=== PATIENT | female | born 1975 | race Two or more races ===

== ENCOUNTER 2024-03-08 15:53 | Emergency (ER) | payer MEDICAID, SELFPAY ==
[2024-03-08 16:03] VITALS: BP 157/91; PULSE 87; RESP 18; TEMP 36.9; O2SAT 99; BMI 37.2
--- NOTE | 2024-03-08 16:07 | XR_ITS ---
Examination: Foot, right, 3 views Technique: AP, oblique, lateral views foot, 3 views Date and time of exam: March 08, 2024 1622 hours INDICATIONS: Foot today, foot pain. FINDINGS: No acute fracture No dislocation No foreign body IMPRESSION: No acute fracture
--- NOTE | 2024-03-08 16:08 | PD.EDFALL ---
ED Fall Injury RME/HPI General Chief Complaint: Fall Stated Complaint: right foot pain/ right elbow injury, s/p fall 10 m Time Seen by Provider: 03/08/24 16:04 Arrival date/time: 03/08/24 15:53 RME / HPI RME / HPI Narrative: 48-year-old female patient with no significant medical history, came in for evaluation regarding ground-level fall. 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 Patient also complained of pain to the right foot described as dull ache stable to mild patient is ambulatory denies vaccination is unknown denies any LOC denies any other injury. Incident happened few minutes prior to ER visit. Related Data Allergies Allergy/AdvReac Type Severity Reaction Status Date / Time No Known Allergies Allergy Verified 03/08/24 15:55 Review of Systems Review of Systems Narrative Review of Systems: Review of system reviewed and within normal limits except mentioned in HPI ED Exam Narrative Physical exam: VITAL SIGNS: Reviewed. GENERAL APPEARANCE: Alert and interactive, follows commands, no acute distress, HEAD AND FACE: Non-traumatic. ENT: PERRL, pink conjunctivitis, eyelid no trauma, Mucous membrane moist. NECK: Supple, nontender, no nuchal rigidity. CHEST: No tenderness, no crepitus, no paradoxical movement, no retractions. LUNGS: Clear, well ventilated, symmetric, no rales, no wheezing, no ronchi, no stridor, good breath sounds bilaterally. HEART: Regular rate, regular rhythm, no murmur, no gallops. ABDOMEN: Soft, positive bowel sounds, nondistended, no guarding, nontender, no rebound, no masses, RECTAL: Deferred. GENITAL: Deferred. NEUROLOGICAL: Gross motor function intact sensory function intact, Appropriate for age. MUSCULOSKELETAL: low back nontender, full range of motion. EXTREMITIES: Abrasion noted to the right posterior forearm no gaping wound noted, full range of motion. Nontender SKIN: Color pink, dry, no rash, no lacerations, no abrasions, no contusions. LYMPHATICS: Deferred. Course Quality Measures none Orders Category Date Time Status XR foot comp RT min 3V Stat Exams 03/08/24 16:07 Completed Acetaminophen Tab [Tylenol ES Tab] Med 03/08/24 16:07 Discontinued 1,000 mg PO X1 ONE Bacitracin Oint Tube Med 03/08/24 16:07 Discontinued See Dose Instructions TOP X1 ONE Tet,Diphth,Pertuss(Acell)-Tdap [Boostrix Vacc] Med 03/08/24 16:07 Discontinued 0.5 ml IMI .ONCE ONE Vital Signs Vital signs: Vital Signs Temperature 98.5 F 03/08/24 16:03 Pulse Rate 87 03/08/24 16:03 Respiratory Rate 18 03/08/24 16:03 Blood Pressure 157/91 H 03/08/24 16:03 Pulse Oximetry (%) 99 03/08/24 16:03 Oxygen Delivery Method Room Air 03/08/24 16:03 Fall MDM Narrative MDM Narrative:: 48-year-old female patient with no significant medical history, came in for evaluation regarding ground-level fall. 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 Patient also complained of pain to the right foot described as dull ache stable to mild patient is ambulatory denies vaccination is unknown denies any LOC denies any other injury. Incident happened few minutes prior to ER visit. Dressing with Neosporin done. X-ray of the foot came back unremarkable results discussed with the patient and family. Patient was also given Boostrix. Patient stable for discharge Patient data External records reviewed:: None Clinical information provided by:: patient Social determinants that could affect healthcare access:: none Patient has the following chronic illnesses:: None How is presenting disease/condition affected by chronic disease/condition?: no chronic disease Evaluation data The following diagnostics were reviewed and interpreted by me:: radiology exam(s) Lab and/or radiology exams considered but not ordered:: None Interpretation Summary: X-ray of the foot came back unremarkable, no fracture no dislocation noted Medications / Prescriptions Medications or Prescriptions considered but not ordered:: None Boostrix, Medication administrations:: Medication Administration History Discontinued Medications Acetaminophen (Acetaminophen 500 Mg Tablet) 1,000 mg PO X1 ONE Stop: 03/08/24 16:08 Last Admin: 03/08/24 16:14 Dose: 1,000 mg Documented By: TONY Bacitracin (Bacitracin Oint 15 Gm Tube) 0 gm TOP X1 ONE Stop: 03/08/24 16:08 Last Admin: 03/08/24 16:15 Dose: 1 applicatio Documented By: TONY Diphtheria/Tetanus/Acell Pertussis (Diphth,Pertuss(Acell),Tet Vac 0.5 Ml Vial) 0.5 ml IMi .ONCE ONE Stop: 03/08/24 16:08 Last Admin: 03/08/24 16:15 Dose: 0.5 ml Documented By: TONY Boostrix, bacitracin dressing, and Tylenol Consultations Consultation(s) initiated? (list below): No Diagnosis Fall Differential Diagnosis: other (Foot fracture, foot pain, forearm abrasions, status fall) Most likely diagnosis given after review of the tests above:: Foot pain, forearm abrasion status post fall Admission Indicated Admission indicated?: not indicated Explain why admission is indicated or not indicated:: Stable Admission Request Was there a request for admission?: No Disposition Plan Disposition Plan: Discharge Discharge Attestation Discharge Attestation: The patient and all family members were given an opportunity to ask questions and understood the discharge instructions. Discharge instructions specifically effects, indications for sooner follow up or return to the emergency department, and the expected course of current diagnosis. Patient condition: Stable Discharge Plan Plan Patient Disposition: HOME (Self Care) Disposition Comment: stable Prescriptions/Referrals Referrals: Dionna Pierce FNP-C [Primary Care Provider] - In 1 week Problem List Clinical Impression: Abrasion forearm, Foot pain, Fall Patient/Caregiver Discharge Instructions Discharge Activity: activity as tolerated Education Materials: ED Abrasions Additional Instructions: Thank you for the opportunity for serving you today. You are stable for discharged . You are advised to: Follow-up with your PCP in 1 to 2 days Return to ED for worsening of symptoms Increase oral fluids Daily dressing Neosporin as needed You may take [id number] Tylenol as needed for pain Print Language: Yakut Stand Alone Forms: Jackie Award Info., Patient Portal Info Letter RUPERTO/CHRISTIANO Supervising Physician RUPERTO/CHRISTIANO Supervising Physician: MD Travis
[2024-03-08] MEDS: ACETAMINOPHEN 500 MG TABLET 1000 MG PO (16:14)
[2024-03-08] MEDS: DIPHTH,PERTUSS(ACELL),TET VAC 0.5 ML VIAL IMi (16:15)
[2024-03-08] MEDS: BACITRACIN OINT 15 GM TUBE TOP (16:15)
== END 2024-03-08 17:35 | disposition home or self-care (01) ==
PROVIDERS: Emergency Provider Emergency Medicine; PCP Nurse Practitioner Family
DX: S50.811A Abrasion of right forearm, initial encounter (principal); M79.671 Pain in right foot; W18.30XA Fall on same level, unspecified, initial encounter; Y93.K1 Activity, walking an animal; Z23 Encounter for immunization
CPT/HCPCS: 73630; 90471; 90715; 99283; A9270